=== PATIENT | male | born 1990 ===

== ENCOUNTER 2018-03-12 17:12 | Emergency (ER) | payer OTHER ==
[2018-03-12 17:22] VITALS: PULSE 56; RESP 17; TEMP 97.3; O2SAT 100
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
--- NOTE | 2018-03-13 09:24 | RAD ---
Date of service: 03/12/2018 PROCEDURE: Left Knee Radiographs. HISTORY: Pain. COMPARISON: None. FINDINGS: BONES: No acute fracture or destructive bony lesion identified. JOINTS: Normal. No osteoarthritis. JOINT EFFUSION: Small suprapatellar bursa effusion present. OTHER FINDINGS: None. IMPRESSION: Small suprapatellar bursa effusion. No acute fracture or destructive bony lesion identified left knee.
== END 2018-03-12 18:47 | disposition home or self-care (01) ==
LOC: H.ER 17:12
DX: M25.562 Pain in left knee (principal); V43.52XA Car driver injured in collision with other type car in traffic accident, initial encounter; Y92.410 Unspecified street and highway as the place of occurrence of the external cause